=== PATIENT | male | born 1940 | race Caucasian/White ===

== ENCOUNTER 2022-06-01 14:10 | Emergency (ER) | payer MEDICARE ==
[~2022-06-01] VITALS: Ht 170.2 cm; Wt 65.0 kg
[2022-06-01 14:19] VITALS: BP 180/82
[2022-06-01] MEDS ORDERED: KEFLEX500 MG PO (15:35)
== END 2022-06-01 15:40 | disposition home or self-care (01) ==
LOC: ED 14:10
DX: S61.412A Laceration without foreign body of left hand, initial encounter (principal); I10 Essential (primary) hypertension; E11.9 Type 2 diabetes mellitus without complications; W45.8XXA Other foreign body or object entering through skin, initial encounter; Y93.89 Activity, other specified; Y92.008 Other place in unspecified non-institutional (private) residence as the place of occurrence of the external cause; Z86.73 Personal history of transient ischemic attack (TIA), and cerebral infarction without residual deficits

== ENCOUNTER 2022-06-24 01:24 | Emergency (ER) | payer MEDICARE ==
[2022-06-24] VITALS (11 sets, daily range): BP systolic 119–185; BP diastolic 53–81
[~2022-06-24] VITALS: Ht 170.2 cm; Wt 63.5 kg
[~2022-06-24 01:24] MED LIST: KEFLEX500 MG PO
[2022-06-24] MEDS ORDERED: DOXAZOSIN4 MG PO (01:40)
[2022-06-24] MEDS ORDERED: METOPROL TAR25 MG PO (01:42)
[2022-06-24] MEDS ORDERED: LOSARTAN POTASS50 MG PO (01:42)
[2022-06-24] MEDS ORDERED: [UNRECOGNIZED DRUG - OTHER] PO (01:43)
[2022-06-24] MEDS ORDERED: ASPIRIN81 MG PO (01:43)
[2022-06-24] MEDS ORDERED: FINASTERIDE5 MG PO (01:44)
[2022-06-24] MEDS ORDERED: EZETIMIBE10 MG PO (01:45)
[2022-06-24 02:19] LABS: HEMATOCRIT 36.4 % (39.0-50.0); HEMOGLOBIN 12.1 g/dl (14.0-18.0); IMMATURE GRANULOCYTES 0.5 % (0.0-5.0); MEAN CELL VOLUME 87.3 fL CALC (80.0-100.0); MEAN CORPUSCULAR HGB CONC 33.2 g/dL CAL (32.0-36.0); NEUT# 3.79 thou/uL (1.82-7.42); RED BLOOD COUNT 4.17 mill/uL (4.70-6.10); RED CELL DISTRI WIDTH 13.3 % (11.5-15.5)
[2022-06-24 02:29] LABS: ALKALINE PHOSPHATASE 103 u/l (38-126); ANION GAP 12 (6-22 (CALC)); BILIRUBIN, TOTAL 0.4 mg/dL (0.0-1.4); BUN 16 mg/dL (8-23); BUN/CREATININE RATIO 16 (12-20 (CALC)); CARBON DIOXIDE 26 mmol/l (22-30); CHLORIDE 106 mmol/l (95-108); CREATININE 0.9 mg/dL (0.7-1.3); GFR FOR AFR.AMER. > 60 ML/MIN (>=60 (CALC)); GFR OTHER RACES > 60 ML/MIN (>=60 (CALC)); POTASSIUM 4.4 mmol/l (3.5-5.1); SGOT/AST 37 u/l (19-48); SODIUM 139 mmol/l (137-146); TOTAL PROTEIN 7.2 g/dL (6.3-8.2)
[2022-06-24 02:42] LABS: MYOGLOBIN 63 ng/mL (0 - 121)
[2022-06-24 02:58] LABS: URINE BILIRUBIN - DIPSTICK NEGATIVE (NEGATIVE); URINE BLOOD DIPSTICK NEGATIVE (NEGATIVE); URINE COLOR YELLOW; URINE GLUCOSE - DIPSTICK NEGATIVE (NEGATIVE); URINE KETONE NEGATIVE (NEGATIVE); URINE LEUK ESTERASE NEGATIVE (NEGATIVE); URINE PROTEIN - DIPSTICK NEGATIVE (NEG-TRACE); URINE SPECIFIC GRAVITY 1.015; URINE UROBILINOGEN - DIPSTICK 0.2 E.U./dL (0.2)
[2022-06-24 03:02] LABS: URINE NITRITE - DIPSTICK NEGATIVE (Negative)
== END 2022-06-24 03:33 | disposition home or self-care (01) ==
LOC: ED 01:24
PROVIDERS: Emergency Medicine
DX: I10 Essential (primary) hypertension (principal); E11.9 Type 2 diabetes mellitus without complications; Z86.73 Personal history of transient ischemic attack (TIA), and cerebral infarction without residual deficits

== ENCOUNTER 2022-10-10 15:31 | Inpatient (IN) | payer MEDICARE ==
[~2022-10-10] VITALS: Ht 170.2 cm; Wt 65.6 kg
[~2022-10-10 15:31] MED LIST changes: +ASPIRIN81 MG PO; +DOXAZOSIN4 MG PO; +EZETIMIBE10 MG PO; +FINASTERIDE5 MG PO; +LOSARTAN POTASS50 MG PO; +METOPROL TAR25 MG PO; +[UNRECOGNIZED DRUG - OTHER] PO
[2022-10-10 17:01] LABS: URINE BILIRUBIN - DIPSTICK NEGATIVE (NEGATIVE); URINE BLOOD DIPSTICK TRACE-INTACT (NEGATIVE); URINE COLOR YELLOW; URINE GLUCOSE - DIPSTICK NEGATIVE (NEGATIVE); URINE KETONE NEGATIVE (NEGATIVE); URINE PH 7.5 (4.5-8.0); URINE PROTEIN - DIPSTICK 100 mg/dL (NEG-TRACE); URINE SPECIFIC GRAVITY 1.025
[2022-10-10 17:06] LABS: BASO% 0.1 % (0-3); EOS% 0.1 % (0-8); HEMATOCRIT 36.2 % (39.0-50.0); HEMOGLOBIN 11.4 g/dl (14.0-18.0); IMMATURE GRANULOCYTES 0.5 % (0.0-5.0); LYMPH% 5.3 % (15-41); MEAN CELL VOLUME 87.2 fL CALC (80.0-100.0); MEAN CORPUSCULAR HGB 27.5 pG CALC (26.0-32.0); MEAN CORPUSCULAR HGB CONC 31.5 g/dL CAL (32.0-36.0); MONO% 7.9 % (2-13); NEUT# 7.64 thou/uL (1.82-7.42); NEUT% 86.1 % (42-76); RED BLOOD COUNT 4.15 mill/uL (4.70-6.10)
[2022-10-10 17:11] LABS: URINE LEUK ESTERASE SMALL (NEGATIVE); URINE NITRITE - DIPSTICK NEGATIVE (Negative)
[2022-10-10 17:19] LABS: URINE AMORPH SEDIMENT MANY hpf (NONE-FER)
[2022-10-10 17:20] LABS: URINE BACTERIA MANY hpf
[2022-10-10 17:24] LABS: ALBUMIN 3.9 g/dL (3.2-5.0); BILIRUBIN, TOTAL 0.8 mg/dL (0.2-1.3); CREATININE 1.6 mg/dL (0.7-1.3); POTASSIUM 4.7 mmol/l (3.5-5.1); TOTAL PROTEIN 7.3 g/dL (6.3-8.2)
[2022-10-10 19:30] VITALS: BP 172/76
[2022-10-10 19:46] VITALS: BP 182/93
[2022-10-10 20:00] VITALS: BP 171/77
[2022-10-10 20:15] VITALS: BP 170/75
[2022-10-10 20:32] VITALS: BP 172/69
[2022-10-10 20:45] VITALS: BP 172/69
[2022-10-11 00:24] VITALS: BP 123/46
[2022-10-11 04:07] VITALS: BP 137/55
[2022-10-11 06:30] VITALS: BP 143/47
[2022-10-11 07:13] LABS: HEMATOCRIT 33.2 % (39.0-50.0); HEMOGLOBIN 10.4 g/dl (14.0-18.0); MEAN CELL VOLUME 86.9 fL CALC (80.0-100.0); MEAN CORPUSCULAR HGB 27.2 pG CALC (26.0-32.0); MEAN CORPUSCULAR HGB CONC 31.3 g/dL CAL (32.0-36.0); RED BLOOD COUNT 3.82 mill/uL (4.70-6.10); RED CELL DISTRI WIDTH 14.2 % (11.5-15.5)
[2022-10-11 07:39] LABS: BILIRUBIN, TOTAL 0.7 mg/dL (0.2-1.3); CREATININE 1.4 mg/dL (0.7-1.3); MAGNESIUM 2.4 mg/dL (1.6-2.3); POTASSIUM 4.1 mmol/l (3.5-5.1)
[2022-10-11 08:26] LABS: ALBUMIN 2.9 g/dL (3.2-5.0); TOTAL PROTEIN 5.5 g/dL (6.3-8.2)
[2022-10-11 10:57] VITALS: BP 141/48
[2022-10-11 15:24] VITALS: BP 146/53
[2022-10-11 19:18] VITALS: BP 140/55
[2022-10-12] VITALS (7 sets, daily range): BP systolic 160–181; BP diastolic 57–74
[2022-10-12 06:09] LABS: BASO% 0.2 % (0-3); EOS% 0.9 % (0-8); HEMATOCRIT 29.2 % (39.0-50.0); HEMOGLOBIN 9.4 g/dl (14.0-18.0); IMMATURE GRANULOCYTES 0.7 % (0.0-5.0); LYMPH% 16.1 % (15-41); MEAN CELL VOLUME 85.4 fL CALC (80.0-100.0); MEAN CORPUSCULAR HGB 27.5 pG CALC (26.0-32.0); MEAN CORPUSCULAR HGB CONC 32.2 g/dL CAL (32.0-36.0); NEUT# 3.98 thou/uL (1.82-7.42); NEUT% 72.1 % (42-76); RED BLOOD COUNT 3.42 mill/uL (4.70-6.10); RED CELL DISTRI WIDTH 14.2 % (11.5-15.5)
[2022-10-12 06:22] LABS: ALBUMIN 2.7 g/dL (3.2-5.0); ALKALINE PHOSPHATASE 202 u/l (38-126); ANION GAP 6 (6-22 (CALC)); BUN 37 mg/dL (8-23); BUN/CREATININE RATIO 28 (12-20 (CALC)); CARBON DIOXIDE 23 mmol/l (22-30); CHLORIDE 112 mmol/l (95-108); CREATININE 1.3 mg/dL (0.7-1.3); GFR FOR AFR.AMER. > 60 ML/MIN (>=60 (CALC)); GFR OTHER RACES 53 ML/MIN (>=60 (CALC)); POTASSIUM 4.1 mmol/l (3.5-5.1); SGOT/AST 138 u/l (19-48); SODIUM 137 mmol/l (137-146); TOTAL PROTEIN 5.6 g/dL (6.3-8.2)
[2022-10-12 06:25] LABS: BILIRUBIN, TOTAL 0.3 mg/dL (0.2-1.3)
[2022-10-13 00:11] VITALS: BP 152/65
[2022-10-13 05:00] VITALS: BP 176/69
[2022-10-13 06:05] LABS: BASO% 0.2 % (0-3); EOS% 1.9 % (0-8); HEMATOCRIT 34.6 % (39.0-50.0); HEMOGLOBIN 10.9 g/dl (14.0-18.0); IMMATURE GRANULOCYTES 0.9 % (0.0-5.0); LYMPH% 13.6 % (15-41); MEAN CELL VOLUME 86.3 fL CALC (80.0-100.0); MEAN CORPUSCULAR HGB 27.2 pG CALC (26.0-32.0); MEAN CORPUSCULAR HGB CONC 31.5 g/dL CAL (32.0-36.0); MONO% 8.3 % (2-13); NEUT# 6.72 thou/uL (1.82-7.42); NEUT% 75.1 % (42-76); RED BLOOD COUNT 4.01 mill/uL (4.70-6.10); RED CELL DISTRI WIDTH 14.3 % (11.5-15.5)
[2022-10-13 06:17] VITALS: BP 144/53
[2022-10-13 06:22] LABS: ALBUMIN 3.1 g/dL (3.2-5.0); ALKALINE PHOSPHATASE 208 u/l (38-126); ANION GAP 6 (6-22 (CALC)); BILIRUBIN, TOTAL 0.3 mg/dL (0.2-1.3); BUN 27 mg/dL (8-23); BUN/CREATININE RATIO 25 (12-20 (CALC)); CHLORIDE 107 mmol/l (95-108); GFR FOR AFR.AMER. > 60 ML/MIN (>=60 (CALC)); GFR OTHER RACES > 60 ML/MIN (>=60 (CALC)); MAGNESIUM 2.3 mg/dL (1.6-2.3); POTASSIUM 4.3 mmol/l (3.5-5.1); SGOT/AST 82 u/l (19-48); SODIUM 137 mmol/l (137-146); TOTAL PROTEIN 6.2 g/dL (6.3-8.2)
[2022-10-13 06:27] LABS: CARBON DIOXIDE 28 mmol/l (22-30)
[2022-10-13 14:24] VITALS: BP 138/54
[2022-10-13 19:33] VITALS: BP 159/60
[2022-10-14] VITALS (7 sets, daily range): BP systolic 154–191; BP diastolic 54–75
[2022-10-14 05:53] LABS: BASO% 0.2 % (0-3); EOS% 1.6 % (0-8); HEMATOCRIT 30.9 % (39.0-50.0); IMMATURE GRANULOCYTES 1.5 % (0.0-5.0); LYMPH% 17.2 % (15-41); MEAN CELL VOLUME 85.4 fL CALC (80.0-100.0); MEAN CORPUSCULAR HGB 27.6 pG CALC (26.0-32.0); MEAN CORPUSCULAR HGB CONC 32.4 g/dL CAL (32.0-36.0); MONO% 6.8 % (2-13); NEUT# 6.36 thou/uL (1.82-7.42); NEUT% 72.7 % (42-76); RED BLOOD COUNT 3.62 mill/uL (4.70-6.10); RED CELL DISTRI WIDTH 14.3 % (11.5-15.5)
[2022-10-14 06:18] LABS: ALBUMIN 2.6 g/dL (3.2-5.0); ALKALINE PHOSPHATASE 195 u/l (38-126); ANION GAP 9 (6-22 (CALC)); BILIRUBIN, TOTAL 0.2 mg/dL (0.2-1.3); BUN 20 mg/dL (8-23); BUN/CREATININE RATIO 19 (12-20 (CALC)); CARBON DIOXIDE 25 mmol/l (22-30); CHLORIDE 107 mmol/l (95-108); CREATININE 1.1 mg/dL (0.7-1.3); GFR FOR AFR.AMER. > 60 ML/MIN (>=60 (CALC)); GFR OTHER RACES > 60 ML/MIN (>=60 (CALC)); POTASSIUM 4.1 mmol/l (3.5-5.1); SGOT/AST 46 u/l (19-48); SODIUM 137 mmol/l (137-146); TOTAL PROTEIN 5.3 g/dL (6.3-8.2)
[2022-10-14] MEDS ORDERED: LEVOFLOXACIN500MG PO ×2 (09:46→10:05)
== END 2022-10-14 18:04 | DRG 872 ==
LOC: ED 15:31 → MS2 19:57
PROVIDERS: Nurse Practitioner; Nurse Practitioner Family; ADMIT Internal Medicine; ATTEND Internal Medicine
DX: A41.59 Other Gram-negative sepsis (principal); N39.0 Urinary tract infection, site not specified; N17.9 Acute kidney failure, unspecified; T81.41XA Infection following a procedure, superficial incisional surgical site, initial encounter; R65.20 Severe sepsis without septic shock; R74.01 Elevation of levels of liver transaminase levels; I10 Essential (primary) hypertension; E11.9 Type 2 diabetes mellitus without complications; N40.1 Benign prostatic hyperplasia with lower urinary tract symptoms; R33.8 Other retention of urine; B96.4 Proteus (mirabilis) (morganii) as the cause of diseases classified elsewhere; Y83.2 Surgical operation with anastomosis, bypass or graft as the cause of abnormal reaction of the patient, or of later complication, without mention of misadventure at the time of the procedure; Z86.73 Personal history of transient ischemic attack (TIA), and cerebral infarction without residual deficits; Z85.828 Personal history of other malignant neoplasm of skin; Z95.2 Presence of prosthetic heart valve; Z20.822 Contact with and (suspected) exposure to COVID-19
CPT/HCPCS: G0378; J1650; J3370

== ENCOUNTER → 2024-03-16 | Emergency (ER) | payer MEDICARE ==
[2024-03-16] VITALS (14 sets, daily range): BP systolic 137–232; BP diastolic 61–94
[~2024-03-16] VITALS: Ht 170.2 cm; Wt 75.0 kg
[~2024-03-16] MED LIST changes: +LEVOFLOXACIN500MG PO
[2024-03-16 12:16] LABS: BASO% 0.5 % (0-3); EOS% 0.5 % (0-8); HEMATOCRIT 33.4 % (39.0-50.0); HEMOGLOBIN 11.1 g/dl (14.0-18.0); LYMPH% 22.3 % (15-41); MEAN CELL VOLUME 86.5 fL CALC (80.0-100.0); MEAN CORPUSCULAR HGB 28.8 pG CALC (26.0-32.0); MEAN CORPUSCULAR HGB CONC 33.2 g/dL CAL (32.0-36.0); MONO% 14.2 % (2-13); NEUT# 2.55 thou/uL (1.82-7.42); NEUT% 62.5 % (42-76); RED BLOOD COUNT 3.86 mill/uL (4.70-6.10); RED CELL DISTRI WIDTH 14.9 % (11.5-15.5)
[2024-03-16 12:20] LABS: URINE BILIRUBIN - DIPSTICK Negative (NEGATIVE); URINE BLOOD DIPSTICK Small (NEGATIVE); URINE GLUCOSE - DIPSTICK Negative (NEGATIVE); URINE KETONE Negative (NEGATIVE); URINE LEUK ESTERASE Negative (NEGATIVE); URINE NITRITE - DIPSTICK Negative (Negative); URINE PROTEIN - DIPSTICK 30 mg/dL (NEG-TRACE); URINE UROBILINOGEN - DIPSTICK 0.2 E.U./dL (0.2)
[2024-03-16 12:20] LABS: CREATININE 1.5 mg/dL (0.7-1.3); POTASSIUM 4.3 mmol/l (3.5-5.1)
[2024-03-16 12:32] LABS: URINE COLOR Yellow; URINE EPITHELIAL CELLS FEW EPI/hpf (0-FEW); URINE MUCUS MODERATE hpf (NONE-FEW); URINE RBC 0-2 RBC/hpf (0-5)
[2024-03-16 12:32] LABS: BILIRUBIN, TOTAL 0.5 mg/dL (0.2-1.3); TOTAL PROTEIN 6.8 g/dL (6.3-8.2)
== END | disposition home or self-care (01) ==
LOC: ED 10:51
PROVIDERS: Emergency Medicine
DX: S00.01XA Abrasion of scalp, initial encounter (principal); S00.03XA Contusion of scalp, initial encounter; I10 Essential (primary) hypertension; W01.0XXA Fall on same level from slipping, tripping and stumbling without subsequent striking against object, initial encounter; Y92.009 Unspecified place in unspecified non-institutional (private) residence as the place of occurrence of the external cause; Z86.73 Personal history of transient ischemic attack (TIA), and cerebral infarction without residual deficits